=== PATIENT | male | born 1995 | race American Indian/Alaskan Native ===

== ENCOUNTER 2017-06-25 03:11 | Inpatient (IN) | payer BC ==
[2017-06-25] MEDS ORDERED: ASPIRIN PO ONE (04:20)
--- NOTE | 2017-06-25 04:51 | XRay Report ---
FINAL REPORT PROCEDURE: XR CHEST ROUTINE 2V TECHNIQUE: PA and lateral chest radiographs were obtained. CPT 67516 HISTORY: Shortness of breath COMPARISON: No prior studies are available for comparison. FINDINGS: Heart: Heart is enlarged. Mediastinum/Vessels: Normal. Lungs/Pleural space: Normal. Bony thorax: No acute osseous abnormality. Other: Pacemaker leads are in proper position. IMPRESSION: The heart is enlarged. Lungs are clear. Pacemaker leads are in proper position..
[2017-06-25 05:19] LABS: Basophils # (Auto) 0.1 K/mm3 (0.0-0.1); Basophils % (Auto) 0.9 % (0.0-1.8); Eosinophils # (Auto) 0.1 K/mm3 (0.0-0.4); Eosinophils % (Auto) 0.9 % (0.0-4.3); Hematocrit 43.6 % (35.5-45.6); Hemoglobin 14.6 gm/dl (11.8-15.2); Lymphocytes # (Auto) 1.5 K/mm3 (1.2-5.4); Lymphocytes % (Auto) 22.9 % (13.4-35.0); Mean Corpuscular HGB Conc 34 % (32-34); Mean Corpuscular Hemoglobin 30 pg (28-32); Mean Corpuscular Volume 90 fl (84-94); Monocytes # (Auto) 0.5 K/mm3 (0.0-0.8); Monocytes % (Auto) 7.5 % (0.0-7.3); Platelet Count 237 K/mm3 (140-440); Red Blood Count 4.85 M/mm3 (3.65-5.03); Red Cell Distribution Width 14.5 % (13.2-15.2)
[2017-06-25 05:25] LABS: BUN/Creatinine Ratio 15; Blood Urea Nitrogen 17 mg/dL (9-20); Calcium 8.7 mg/dL (8.4-10.2); Hemolysis Index 5
[2017-06-25 05:48] LABS: Creatine Kinase MB 6.1 ng/mL (0.0-4.0)
[2017-06-25 05:50] LABS: HDL Cholesterol 28 mg/dL (40-59); LDL Cholesterol,Direct 83 mg/dL (50-130)
[2017-06-25 05:51] LABS: Albumin 4.1 g/dL (3.9-5); Bilirubin,Direct 0.4 mg/dL (0-0.2)
[2017-06-25] MEDS ORDERED: K-DUR PO ONE (07:47)
--- NOTE | 2017-06-25 07:52 | Emergency Department Report ---
ED Chest Pain HPI - General Chief Complaint: Chest Pain Stated Complaint: CHEST PAIN Time Seen by Provider: 06/25/17 07:30 Source: patient, family Mode of arrival: Ambulatory Limitations: No Limitations - History of Present Illness Initial Comments: 22-year-old male with a past medical history of cardiomyopathy status post pneumonia in 2014, AICD placement, CHF, and previous CVA presents to the hospital with complaints of chest pain started 1 hour prior to arrival. Patient states he coughed, vomited, and then had sharp sternal chest pain rated 1013 in intensity. This pain is constant. Pain was worse with movement and certain positions such as lying supine. Now his pain has reduced to a 4/10 and is dull and constant. Patient had associated shortness of breath initially but that has since resolved. No further nausea or vomiting reported. Patient denies cough or cold symptoms. Denies recent travel, calf tenderness, or edema. His gopherman is Dr. Wells Severity scale (0 -10): 7 - Related Data Allergies Allergy/AdvReac Type Severity Reaction Status Date / Time hydrocodone Allergy Unknown Verified 06/25/17 04:14 Heart Score - HEART Score History: Slightly suspicious EKG: Non-specific Age: < 45 Risk factors: 1-2 risk factors Troponin: 1-3x normal limit HEART Score: 3 ED Review of Systems ROS: Stated complaint: CHEST PAIN Other details as noted in HPI Comment: All other systems reviewed and negative Other: Constitutional: No fevers chills Eyes: No eye pain visual changes ENT: No ear pain or throat pain Neck: Denies pain Respiratory: Denies cough wheezing Cardiovascular: as per hpi GI: Denies abdominal pain, nausea, vomiting, diarrhea : Denies dysuria Musculoskeletal: Denies back pain Skin: Denies rash, lesions, erythema Neurologic: Denies headache, numbness, weakness Psychiatric: Denies suicidal ideation, hallucinations ED Past Medical Hx - Past Medical History Previous Medical History?: Yes Hx CVA: Yes Hx Congestive Heart Failure: Yes - Surgical History Past Surgical History?: Yes Hx Internal Defibrillator: Yes Additional Surgical History: defib. right knee - Social History Smoking Status: Never Smoker Substance Use Type: None ED Physical Exam - General Limitations: No Limitations - Other Other exam information: General: No limitations, patient is alert in no acute distress Head exam: Atraumatic, normocephalic Eyes exam: Normal appearance ENT: Moist mucous membrane, normal oropharynx Neck exam: Normal inspection, full range of motion Respiratory exam: Clear to auscultation bilateral, no wheezes, rales, crackles, chest wall nontender Cardiovascular: Normal rate and rhythm, heart rate 90's Abdomen: Soft, nondistended, and nontender, with normal bowel sounds, no rebound, or guarding Extremity: Full range of motion normal inspection no deformity, no calf tenderness or edema Back: Normal Inspection, full range of motion, no tenderness Neurologic: Alert, oriented x3, cranial nerves intact, no motor or sensory deficit Psychiatric: normal affect, normal mood Skin: Warm, dry, intact ED Course Vital Signs 06/25/17 06/25/17 06/25/17 03:25 05:18 05:22 Temperature 97.9 F Pulse Rate 68 90 Respiratory 18 13 18 Rate Blood Pressure 129/75 O2 Sat by Pulse 100 99 98 Oximetry 06/25/17 06/25/17 06/25/17 05:30 05:45 06:00 Temperature Pulse Rate 87 86 84 Respiratory 16 27 H 27 H Rate Blood Pressure 114/66 114/66 111/59 O2 Sat by Pulse 97 98 97 Oximetry 06/25/17 06/25/17 06/25/17 06:15 06:30 06:45 Temperature Pulse Rate 83 83 85 Respiratory 25 H 25 H 27 H Rate Blood Pressure 111/59 111/67 111/67 O2 Sat by Pulse 97 97 98 Oximetry 06/25/17 07:00 Temperature Pulse Rate 83 Respiratory 15 Rate Blood Pressure 104/61 O2 Sat by Pulse 94 Oximetry - Reevaluation(s) Reevaluation #1: 06/25/17 09:01 Patient received aspirin and potassium in the ED. declined pain meds Reevaluation #2: 06/25/17 11:09 RN informed me that trop is elevated again. I recalled hospitalist . . awaiting admit orders. instructed RN to recall cardiology . . . awaiting consult. Reevaluation #3: 06/25/17 12:18 admission orders placed - Consultations Consultation #1: 06/25/17 08:57 Cardiology consult regarding upward trending. Dr Crabtree and [place] informed, ekg sent for review. HALEY score - Haley Score Age > 65: (0) No Aspirin use within the Past 7 Days: (0) No 3 or more CAD Risk Factors: (0) No 2 or more Angina events in past 24 hrs: (1) Yes Known CAD with more than 50% Stenosis: (0) No Elevated Cardiac Markers: (1) Yes ST Deviation Greater than 0.5mm: (0) No HALEY Score: 2 ED Medical Decision Making - Lab Data Result diagrams: 06/25/17 04:52 06/25/17 04:52 Lab Results 06/25/17 06/25/17 06/25/17 Range/Units 04:52 04:52 04:52 WBC 6.6 (4.5-11.0) K/mm3 RBC 4.85 (3.65-5.03) M/mm3 Hgb 14.6 (11.8-15.2) gm/dl Hct 43.6 (35.5-45.6) % MCV 90 (84-94) fl MCH 30 (28-32) pg MCHC 34 (32-34) % RDW 14.5 (13.2-15.2) % Plt Count 237 (140-440) K/mm3 Lymph % (Auto) 22.9 (13.4-35.0) % [place] % (Auto) 7.5 H (0.0-7.3) % Eos % (Auto) 0.9 (0.0-4.3) % Baso % (Auto) 0.9 (0.0-1.8) % Lymph # 1.5 (1.2-5.4) K/mm3 [place]ke # 0.5 (0.0-0.8) K/mm3 Eos # 0.1 (0.0-0.4) K/mm3 Baso # 0.1 (0.0-0.1) K/mm3 Seg Neutrophils % 67.8 (40.0-70.0) % Seg Neutrophils # 4.5 (1.8-7.7) K/mm3 Sodium 136 L (137-145) mmol/L Potassium 3.0 L (3.6-5.0) mmol/L Chloride 92.3 L (98-107) mmol/L Carbon Dioxide 27 (22-30) mmol/L Anion Gap 20 mmol/L BUN 17 (9-20) mg/dL Creatinine 1.1 (0.8-1.5) mg/dL Estimated GFR > 60 ml/min BUN/Creatinine Ratio 15 % Glucose 114 H (75-100) mg/dL Calcium 8.7 (8.4-10.2) mg/dL Total Bilirubin 1.60 H (0.1-1.2) mg/dL Direct Bilirubin 0.4 H (0-0.2) mg/dL Indirect Bilirubin 1.2 mg/dL AST 31 (5-40) units/L ALT 24 (7-56) units/L Alkaline Phosphatase 105 (35-129) units/L Total Creatine Kinase 205 H (55-170) units/L CK-MB (CK-2) 6.1 H (0.0-4.0) ng/mL CK-MB (CK-2) Rel Index 2.9 (0-4) Troponin T 0.052 H (0.00-0.029) ng/mL NT-Pro-B Natriuret Pep 3041 H (0-450) pg/mL Total Protein 7.5 (6.3-8.2) g/dL Albumin 4.1 (3.9-5) g/dL Albumin/Globulin Ratio 1.2 % Triglycerides 78 (2-149) mg/dL Cholesterol 126 (50-199) mg/dL LDL Cholesterol Direct 83 (50-130) mg/dL HDL Cholesterol 28 L (40-59) mg/dL Cholesterol/HDL Ratio 4.50 % 06/25/17 Range/Units 07:48 WBC (4.5-11.0) K/mm3 RBC (3.65-5.03) M/mm3 Hgb (11.8-15.2) gm/dl Hct (35.5-45.6) % MCV (84-94) fl MCH (28-32) pg MCHC (32-34) % RDW (13.2-15.2) % Plt Count (140-440) K/mm3 Lymph % (Auto) (13.4-35.0) % Parke % (Auto) (0.0-7.3) % Eos % (Auto) (0.0-4.3) % Baso % (Auto) (0.0-1.8) % Lymph # (1.2-5.4) K/mm3 [place]ke # (0.0-0.8) K/mm3 Eos # (0.0-0.4) K/mm3 Baso # (0.0-0.1) K/mm3 Seg Neutrophils % (40.0-70.0) % Seg Neutrophils # (1.8-7.7) K/mm3 Sodium (137-145) mmol/L Potassium (3.6-5.0) mmol/L Chloride (98-107) mmol/L Carbon Dioxide (22-30) mmol/L Anion Gap mmol/L BUN (9-20) mg/dL Creatinine (0.8-1.5) mg/dL Estimated GFR ml/min BUN/Creatinine Ratio % Glucose (75-100) mg/dL Calcium (8.4-10.2) mg/dL Total Bilirubin (0.1-1.2) mg/dL Direct Bilirubin (0-0.2) mg/dL Indirect Bilirubin mg/dL AST (5-40) units/L ALT (7-56) units/L Alkaline Phosphatase (35-129) units/L Total Creatine Kinase (55-170) units/L CK-MB (CK-2) (0.0-4.0) ng/mL CK-MB (CK-2) Rel Index (0-4) Troponin T 0.830 H* D (0.00-0.029) ng/mL NT-Pro-B Natriuret Pep (0-450) pg/mL Total Protein (6.3-8.2) g/dL Albumin (3.9-5) g/dL Albumin/Globulin Ratio % Triglycerides (2-149) mg/dL Cholesterol (50-199) mg/dL LDL Cholesterol Direct (50-130) mg/dL HDL Cholesterol (40-59) mg/dL Cholesterol/HDL Ratio % - EKG Data -: EKG Interpreted by Me (lae) EKG shows normal: sinus rhythm (lat t inv), axis (58), QRS complexes (95), ST-T waves (borderline st elevation inf and ant leads, lat t inv) Rate: tachycardia (101) - EKG Data When compared to previous EKG there are: previous EKG unavailable - Radiology Data Radiology results: report reviewed (cxr: cardiomegaly, lungs clear) - Medical Decision Making Plan to admit patient to the hospital for further cardiac evaluation given mild troponin elevation in a setting of normal renal function and EKG abnormality with no previous available for comparison - Differential Diagnosis CA, PE, GERD, costochondritis, pleurisy Critical Care Time: No Critical care attestation.: If time is entered above; I have spent that time in minutes in the direct care of this critically ill patient, excluding procedure time. ED Disposition Clinical Impression: Elevated troponin, Chest pain, History of cardiomyopathy, AICD (automatic cardioverter/defibrillator) present, Hypokalemia Disposition: 09 OP ADMIT IP TO THIS HOSP Is pt being admited?: Yes Condition: Stable Referrals: GINA HERNANDEZ JR, MD [Primary Care Provider] - 3-5 Days Time of Disposition: 09:03 ([facility]/hosp)
[2017-06-25] MEDS ORDERED: TETRACAINE 0.5% OU ONE (11:29)
[2017-06-25] MEDS ORDERED: MORPHINE IV PRN (12:18)
[2017-06-25] MEDS ORDERED: DULCOLAX PR PRN (12:18)
[2017-06-25] MEDS ORDERED: TYLENOL PO PRN (12:18)
[2017-06-25] MEDS ORDERED: ZOFRAN IV PRN (12:18)
[2017-06-25] MEDS ORDERED: MILK OF MAGNESIA PO PRN (12:18)
--- NOTE | 2017-06-25 12:18 | History and Physical Report ---
History of Present Illness Chief complaint: i have chest pain History of present illness: 22-year-old male with a past medical history of NICM, cardiomyopathy status post pneumonia in 2015, AICD placement, CHF, and previous CVA presents to the hospital with complaints of chest pain started 1 hour prior to arrival. He is SP recent AICD/PM. He states that his symptoms began with coughing that he vomited after which he had a sharp chest pain that was in his left chest nonradiating. The pain was constant and excessive eating or relieving factors. She is receiving some morphine in the ER it has now resolved. He has no further complaints, no fever, no chills cough has resolved production, no orthopnea and no pedal edema no shortness of breath States that he follows up at [facility] Past History Past Medical History: heart failure, stroke Past Surgical History: Other (AICD/PM) Social history: no significant social history. denies: smoking Family history: other Medications and Allergies Allergies Allergy/AdvReac Type Severity Reaction Status Date / Time hydrocodone Allergy Unknown Verified 06/25/17 04:14 Home Medications Medication Instructions Recorded Confirmed Last Taken Type Lisinopril [Zestril TAB] 2.5 mg PO QDAY #30 tablet 06/25/17 Unknown Rx Metoprolol Succinate [Toprol Xl] 25 mg PO DAILY #30 tab.er.24h 06/25/17 Unknown Rx Potassium Chloride [K-Dur] 10 meq PO QDAY #30 tablet 06/25/17 Unknown Rx Torsemide [Demadex] 50 mg PO QDAY #15 tablet 06/25/17 Unknown Rx Torsemide [Demadex] 50 mg PO QDAY 30 Days tablet 06/25/17 Unknown Rx Review of Systems All systems: negative (14 point review of systems otherwise negative except as stated in HPI) Exam - Constitutional Vitals: Temp Pulse Resp BP Pulse Ox 97.9 F 83 15 104/61 94 06/25/17 03:25 06/25/17 07:00 06/25/17 07:00 06/25/17 07:00 06/25/17 07:00 General appearance: Present: no acute distress, well-nourished - EENT Eyes: Present: PERRL ENT: hearing intact, clear oral mucosa - Neck Neck: Present: supple, normal ROM - Respiratory Respiratory effort: normal Respiratory: bilateral: CTA - Cardiovascular Heart Sounds: Present: S1 & S2. Absent: rub, click - Extremities Extremities: pulses symmetrical, No edema Peripheral Pulses: within normal limits - Abdominal General gastrointestinal: Present: soft, non-tender, non-distended, normal bowel sounds Male genitourinary: Present: normal - Integumentary Integumentary: Present: clear, warm, dry - Musculoskeletal Musculoskeletal: gait normal, strength equal bilaterally - Psychiatric Psychiatric: appropriate mood/affect, intact judgment & insight - Neurologic Neurologic: CNII-XII intact, moves all extremities Results - Labs CBC & Chem 7: 06/25/17 04:52 06/25/17 04:52 Labs: Laboratory Last Values WBC 6.6 K/mm3 (4.5-11.0) 06/25/17 04:52 RBC 4.85 M/mm3 (3.65-5.03) 06/25/17 04:52 Hgb 14.6 gm/dl (11.8-15.2) 06/25/17 04:52 Hct 43.6 % (35.5-45.6) 06/25/17 04:52 MCV 90 fl (84-94) 06/25/17 04:52 MCH 30 pg (28-32) 06/25/17 04:52 MCHC 34 % (32-34) 06/25/17 04:52 RDW 14.5 % (13.2-15.2) 06/25/17 04:52 Plt Count 237 K/mm3 (140-440) 06/25/17 04:52 Lymph % (Auto) 22.9 % (13.4-35.0) 06/25/17 04:52 [place] % (Auto) 7.5 % (0.0-7.3) H 06/25/17 04:52 Eos % (Auto) 0.9 % (0.0-4.3) 06/25/17 04:52 Baso % (Auto) 0.9 % (0.0-1.8) 06/25/17 04:52 Lymph # 1.5 K/mm3 (1.2-5.4) 06/25/17 04:52 [place] # 0.5 K/mm3 (0.0-0.8) 06/25/17 04:52 Eos # 0.1 K/mm3 (0.0-0.4) 06/25/17 04:52 Baso # 0.1 K/mm3 (0.0-0.1) 06/25/17 04:52 Seg Neutrophils % 67.8 % (40.0-70.0) 06/25/17 04:52 Seg Neutrophils # 4.5 K/mm3 (1.8-7.7) 06/25/17 04:52 Sodium 136 mmol/L (137-145) L 06/25/17 04:52 Potassium 3.0 mmol/L (3.6-5.0) L 06/25/17 04:52 Chloride 92.3 mmol/L (98-107) L 06/25/17 04:52 Carbon Dioxide 27 mmol/L (22-30) 06/25/17 04:52 Anion Gap 20 mmol/L 06/25/17 04:52 BUN 17 mg/dL (9-20) 06/25/17 04:52 Creatinine 1.1 mg/dL (0.8-1.5) 06/25/17 04:52 Estimated GFR > 60 ml/min 06/25/17 04:52 BUN/Creatinine Ratio 15 % 06/25/17 04:52 Glucose 114 mg/dL (75-100) H 06/25/17 04:52 Calcium 8.7 mg/dL (8.4-10.2) 06/25/17 04:52 Total Bilirubin 1.60 mg/dL (0.1-1.2) H 06/25/17 04:52 Direct Bilirubin 0.4 mg/dL (0-0.2) H 06/25/17 04:52 Indirect Bilirubin 1.2 mg/dL 06/25/17 04:52 AST 31 units/L (5-40) 06/25/17 04:52 ALT 24 units/L (7-56) 06/25/17 04:52 Alkaline Phosphatase 105 units/L (35-129) 06/25/17 04:52 Total Creatine Kinase 205 units/L (55-170) H 06/25/17 04:52 CK-MB (CK-2) 6.1 ng/mL (0.0-4.0) H 06/25/17 04:52 CK-MB (CK-2) Rel Index 2.9 (0-4) 06/25/17 04:52 Troponin T 0.975 ng/mL (0.00-0.029) H* 06/25/17 10:14 NT-Pro-B Natriuret Pep 3041 pg/mL (0-450) H 06/25/17 04:52 Total Protein 7.5 g/dL (6.3-8.2) 06/25/17 04:52 Albumin 4.1 g/dL (3.9-5) 06/25/17 04:52 Albumin/Globulin Ratio 1.2 % 06/25/17 04:52 Triglycerides 78 mg/dL (2-149) 06/25/17 04:52 Cholesterol 126 mg/dL (50-199) 06/25/17 04:52 LDL Cholesterol Direct 83 mg/dL (50-130) 06/25/17 04:52 HDL Cholesterol 28 mg/dL (40-59) L 06/25/17 04:52 Cholesterol/HDL Ratio 4.50 % 06/25/17 04:52 - Imaging and Cardiology Chest x-ray: image reviewed (no acute pathology) Assessment and Plan Assessment and plan: 22-year-old male with a past medical history of nonischemic cardiomyopathy who presents with CP after cough and vomiting Type 2 VT troponin chronically elevated due to systolic CHF, cardiology consult CHF, systolic, chronic Resume home medications which include beta aldo and BUNNY inhibitor Hypokalemia Was repleted in the ER DVT ppx lovenox Plan of care discussed with patient/family: Yes
--- NOTE | 2017-06-25 14:08 | Consultation ---
History of Present Illness Consult date: 06/25/17 Consult reason: chest pain, elevated troponin History of present illness: This is a 22yr old male with a history of nonischemic cardiomyopathy, EF 20% secondary to infectious myocarditis in 12/2015. He also has a [employer] cardiac defibrillator in situ. Patient also has a history of CVA and is on xarelto for oral anticoagulation. Patient presents to the emergency department with complaints of chest pain. Patient describes chest pain that worsens with coughs and positional change. There is no shortness of breath. He denies AICD discharge. Chest x-ray reports cardiomegaly but no CHF. Laboratory values shows elevated troponin of 0.83 thus this cardiac consultation. Past History Past Medical History: heart failure, stroke Past Surgical History: Other (AICD/PM) Social history: no significant social history. denies: smoking Family history: other Medications and Allergies Allergies Allergy/AdvReac Type Severity Reaction Status Date / Time hydrocodone Allergy Unknown Verified 06/25/17 04:14 Home Medications Medication Instructions Recorded Confirmed Last Taken Type Lisinopril [Zestril TAB] 2.5 mg PO QDAY 06/25/17 06/25/17 06/24/17 History Metoprolol Succinate [Toprol Xl] 25 mg PO DAILY 06/25/17 06/25/17 06/24/17 History Potassium Chloride [K-Dur] 10 meq PO QDAY 06/25/17 06/25/17 06/24/17 History Torsemide [Demadex] 50 mg PO QDAY 06/25/17 06/25/17 06/24/17 History Active Meds: Active Medications Acetaminophen (Tylenol) 650 mg PO Q4H PRN PRN Reason: Pain MILD(1-3)/Fever >100.5/[place] Aspirin (Ecotrin) 325 mg PO QDAY JULIO CESAR Bisacodyl (Dulcolax) 10 mg LA QDAY PRN PRN Reason: Constipation unrelieved by MOM Enoxaparin Sodium (Lovenox) 40 mg SUB-Q QDAY@2200 JULIO CESAR Magnesium Hydroxide (Milk Of Magnesia) 30 ml PO Q4H PRN PRN Reason: Constipation Morphine Sulfate (Morphine) 2 mg IV Q4H PRN PRN Reason: Pain, Moderate (4-6) Ondansetron HCl (Zofran) 4 mg IV Q8H PRN PRN Reason: N/V unrelieved by Reglan Physical Examination Vital Signs Temp Pulse Resp BP Pulse Ox 97.9 F 68 18 129/75 100 06/25/17 03:25 06/25/17 03:25 06/25/17 03:25 06/25/17 03:25 06/25/17 03:25 General appearance: no acute distress HEENT: Positive: PERRL Neck: Positive: trachea midline Cardiac: Positive: Reg Rate and Rhythm Lungs: Positive: Decreased Breath Sounds Neuro: Positive: Grossly Intact Results 06/25/17 04:52 06/25/17 04:52 Cardiac Enzymes 06/25/17 Range/Units 04:52 AST 31 (5-40) units/L CK-MB (CK-2) 6.1 H (0.0-4.0) ng/mL Lipids 06/25/17 Range/Units 04:52 Triglycerides 78 (2-149) mg/dL Cholesterol 126 (50-199) mg/dL HDL Cholesterol 28 L (40-59) mg/dL Cholesterol/HDL Ratio 4.50 % CBC 06/25/17 Range/Units 04:52 WBC 6.6 (4.5-11.0) K/mm3 RBC 4.85 (3.65-5.03) M/mm3 Hgb 14.6 (11.8-15.2) gm/dl Hct 43.6 (35.5-45.6) % Plt Count 237 (140-440) K/mm3 Lymph # 1.5 (1.2-5.4) K/mm3 [place] # 0.5 (0.0-0.8) K/mm3 Eos # 0.1 (0.0-0.4) K/mm3 Baso # 0.1 (0.0-0.1) K/mm3 Comprehensive Metabolic Panel 06/25/17 06/25/17 Range/Units 04:52 04:52 Sodium 136 L (137-145) mmol/L Potassium 3.0 L (3.6-5.0) mmol/L Chloride 92.3 L (98-107) mmol/L Carbon Dioxide 27 (22-30) mmol/L BUN 17 (9-20) mg/dL Creatinine 1.1 (0.8-1.5) mg/dL Glucose 114 H (75-100) mg/dL Calcium 8.7 (8.4-10.2) mg/dL Direct Bilirubin 0.4 H (0-0.2) mg/dL Indirect Bilirubin 1.2 mg/dL AST 31 (5-40) units/L ALT 24 (7-56) units/L Alkaline Phosphatase 105 (35-129) units/L Total Protein 7.5 (6.3-8.2) g/dL Albumin 4.1 (3.9-5) g/dL Assessment and Plan Chest pain, muscloskeletal Nonischemic CMP, EF 20% s/t infectious myocarditis 12/2015 Presence of AICD ([employer]) Prior CVA -on xarelto for anticoagulation
[2017-06-25 14:43] VITALS: BP 114/81
--- NOTE | 2017-06-25 17:27 | Event Note ---
Discharge NOTE I discussed the case with real estate rep, Dr. Rojo, patient has nonischemic cardio myopathy, with history of negative cath, EF of 10%, status post AICD patient is not in CHF exacerbation,, chest pain was most likely due to vomiting. -He is currently improved and asymptomatic. His elevated troponin is unlikely to be from an acute coronary condition, it is most likely from chronic systolic CHF -No further testing is advised and no further treatment is advised, given patient is being discharged home.
[2017-06-25] MEDS ORDERED: LOVENOX SUB-Q SCH (22:00)
[2017-06-26] MEDS ORDERED: ECOTRIN PO SCH (10:00)
== END 2017-06-25 17:32 | disposition home or self-care (01) | DRG 313 ==
LOC: ED 03:11 → 4A 12:15
PROVIDERS: ADMIT Internal Medicine; ATTEND Internal Medicine
DX: R07.89 Other chest pain (principal); I42.9 Cardiomyopathy, unspecified; I50.22 Chronic systolic (congestive) heart failure; E87.6 Hypokalemia; Z86.79 Personal history of other diseases of the circulatory system; Z87.01 Personal history of pneumonia (recurrent); Z95.810 Presence of automatic (implantable) cardiac defibrillator; Z86.73 Personal history of transient ischemic attack (TIA), and cerebral infarction without residual deficits; Z88.5 Allergy status to narcotic agent
CPT/HCPCS: 36415; 71046; 80048; 80061; 80074; 82550; 82553; 83880; 84484; 85025; 93005; 93010